=== PATIENT | female | born 1970 | race Caucasian/White ===

== ENCOUNTER 2020-08-06 12:39 | Inpatient (IN) | payer OTHER ==
[~2020-08-06] VITALS: Ht 162.6 cm; Wt 108.4 kg
[2020-08-08] MEDS ORDERED: DULCOLAX10 MG RECTAL (09:37)
[2020-08-08] MEDS ORDERED: SENNA PLUS TAB1 EACH PO (09:38)
[2020-08-08] MEDS ORDERED: ASPIRIN325 PO (09:42)
[2020-08-08] MEDS ORDERED: DESYREL150 MG PO (09:43)
[2020-08-08] MEDS ORDERED: HYDROCODON-ACE1 EA12 PO (09:46)
[2020-08-08] MEDS ORDERED: HYDROCODONE-AP1 EA11 PO (09:49)
[2020-08-08] MEDS ORDERED: ZOFRAN ODT4 MG DISSOLVE (09:50)
[2020-08-08] MEDS ORDERED: MIRALAX17 G1 PO (09:51)
[2020-08-08] MEDS ORDERED: HEPARIN SO5000 UNIT/ SUBQ (09:55)
[2020-08-08] MEDS ORDERED: VENLAFAXINE HCL50 MG PO (09:56)
[2020-08-08] MEDS ORDERED: NEURONTIN300 MG PO (10:06)
[2020-08-08] MEDS ORDERED: LOPRESSOR50 MG PO (10:07)
[2020-08-08] MEDS ORDERED: OLANZAPINE20 MG PO (10:08)
[2020-08-08] MEDS ORDERED: CYMBALTA60 MG PO (10:09)
[2020-08-08] MEDS ORDERED: PRAZOSIN HCL2 MG PO (10:10)
[2020-08-08] MEDS ORDERED: LEVETIRACETAM1000 MG PO (10:12)
--- NOTE | 2020-08-08 14:29 | NUR ---
PATIENT ADMITTED TO ROOM 511 AT 1330. PATIENT IS ALERT AND ORIENTED X4. PATIENT MARY'S, DISTRIBUTOR ADVERTISING MATERIAL ARE EQUAL. LUNGS ARE CLEAR. ABD IS SOFT WITH BSX4. FALL AND SAFETY PROTOCOLS IN PLACE. C/O THROBBING PAIN IN HIS LEFT ANKLE. MEDICATED WITH PRN PAIN MED. P.T. EVAL TO BE DONE LATER TODAY. S.T. AND O.T. TO BE DONE ON MONDAY. CALL LIGHT AND CONTROL IN REACH. PATIENT IS STAND, PIVOT, SIT ON BSC TO VOID AND HAVE BM'S. LEFT LEG AND ANKLE HAS CAST/SPLINT INTACT. PATIENT HAS GOOD CAP REFILL TO HER TOES ON THE LEFT. LUNCH TRAY SERVED. WILL CONTINUE TO MONITER.
[2020-08-08 14:53] VITALS: BP 120/64
[2020-08-08 20:00] VITALS: BP 90/53
--- NOTE | 2020-08-09 00:04 | NUR ---
ASSESSMENT: PT REMAIN ALERT AND ORIENT TIMES FOUR. LEFT LEG NOTED WITH SOFT CASTED SPLINT. PT UP TO BSC WITH WALKER AND NWB ON THE LEFT LOWER EXTREMITY. VSS, AFEBRILE. PT STATE THAT PRN PAIN MED PROVIDES ADEQUATE RELIEF OF PAIN. NO FURTHER COMPLAINTS. CONTINUAL PROGRESS TOWARDS DC GOALS. WILL CONTINUE TO MONITOR.
[2020-08-09 05:27] LABS: HEMATOCRIT 33.6 % (37.0-47.0); HEMOGLOBIN 11.1 gm/dL (12.0-15.0); MCH 29.9 pg (26.0-34.0); MCHC 32.9 g/dL (28.0-37.0); MCV 90.8 fL (80.0-100.0); RBC 3.7 mil/uL (4.20-5.00); RDW 13.9 % (10.5-14.5); WBC 7.6 thou/uL (4.0-11.0)
[2020-08-09 06:22] LABS: CALCIUM 9.6 mg/dL (8.5-10.1); CREATININE 0.7 mg/dL (0.6-1.0); POTASSIUM 3.8 mmol/L (3.5-5.1)
[2020-08-09 08:00] VITALS: BP 109/60
--- NOTE | 2020-08-09 11:21 | NUR ---
ASSUMED CARE AT 0700. ALERT AND ORIENTATED X 4. SLEPT FAIRLY WELL. REPORTED PAIN IN HER L ANKLE ESPECIALLY IN THE TOES AND ALSO REPORTED NUMBNESS. TREATED WITH HYDROCODONE 7.5MG 2 TABS PRN. NOTED PT IS MORE SEDATED AND TIRED. DR KERR WANTS DOSE TO CHANGE TO 10MG INSTEAD OF 15MG, PT IS AGREEABLE TO SWITCH TO 10MG. PT REPORTED HAD A BM YESTERDAY PRIOR TO TRANSFER FROM [place]. L LE IN CAST POST ORIF, ABLE TO MOVE ALL TOES, SKIN IS WARM AND PINK, PEDAL PULSES PRESENT. NWB MAINTAINED.
[2020-08-09 19:26] VITALS: BP 115/68
--- NOTE | 2020-08-10 01:47 | NUR ---
ASSUMED CARE AT 1900 OF 08/09. PATIENT IS A&OX4. REPORTED PAIN IN LEFT ANKLE, PAIN MANAGED W/ PRN HYDROCODONE/APAP. PATIENT IS CURRENTLY RECEIVING 7.5MG OF HYDROCODONE. PATIENT REPORTED PAIN RELEIF. SPLINT REMAINS ON LLE. MOVEMENT AND COLOR PRESENT IN LEFT TOES. CONTINUES TO BE NWB ON LLE. BS PRESENT AND ACTIVE. NO CONCERNS AT THIS TIME, WILL CONT. TO MONITOR.
[2020-08-10 06:08] LABS: FOLIC ACID 9.1 ng/mL (8.6-58.9)
[2020-08-10 07:15] VITALS: BP 134/81
--- NOTE | 2020-08-10 08:43 | NUR ---
PT UP IN CHAIR THIS AM. PT STATED SHE HAS SOME PAIN TO LEFT ANKLE OF 5 ON 1-10 SCALE. PT LAST BM 08/08/20. PT TALKING WITH FREYA MANDUJANO THIS AM ABOUT HER LEVEL OF VIT B12 AND FOLATE. PT SEEMS FLAT IN AFFECT, ANSWERES QUESTIONS APPROPRIALTY. PT ON ROOM AIR. PT IS NWB TO LEFT ANKLE. PT STATED SHE HAS STEPS ONCE IN THE HOUSE TO GET UPSTAIRS. PT HAS SOFT SPINT TO LEFT ANKLE AND USES WALKER TO AMBULATE OR TRANSFER.
--- NOTE | 2020-08-10 10:04 | NUR ---
ADM HYDROCODONE 7.5MG PO FOR PAIN TO LEFT ANKLE OF 5 ON 1-10 SCALE.
--- NOTE | 2020-08-10 14:15 | NUR ---
ADM HYDROCODONE 7.5MG PO FOR PAIN TO LEFT ANKLE OF 6 ON 1-10 SCALE. PT LYING IN BED AFTER THERAPY. ELEVATED LEFT LEG ON PILLOW.
--- NOTE | 2020-08-10 19:20 | NUR ---
ASSISTED PT TO BATHROOM VIA WALKER. PT WANTED PAIN MEDICATION FOR PAIN OF 7 ON 1-10 SCALE ADM HYDROCODONE 7.5MG PO FOR PAIN.
[2020-08-10 19:37] VITALS: BP 114/77
--- NOTE | 2020-08-11 02:19 | NUR ---
ASSUMED CARE AT 1900 OF 08/10. A&OX4, W/ NOTED FORGETFULLNESS. REPORTS LLE PAIN, WITH CONCNETRATION IN ANKLE. LLE REMAINS IN SPLINT AN NWB. PAIN MANAGED WITH PRN HYDROCODONE W/ REPORTS OF PAIN RELEIF. MINIMAL ASSIST OF 1 WITH GB AND WALKER FOR TRANSFERS, PATIENT IS ABLE TO PIVOT FROM BED TO COMMODE WELL. PATIENT REQUIRES REMINDER TO REMAIN NWB ON LLE, FALL PRECAUTION EDUCATION PROVIDED. CALL LIGHT W/IN REACH, BED ALARM ON, SCD IN PLACE ON RLE. NO COCNERNS AT THIS TIME, WILL CONTINUE TO MONITOR.
[2020-08-11 03:05] LABS: GLYCOHEMOGLOBIN (HGB A1C) 5.6 % (4.8-5.6)
[2020-08-11 08:00] VITALS: BP 124/70
--- NOTE | 2020-08-11 12:59 | NUR ---
team meeting, left ankle fx, eval in process. from [facility]. splint left ankle, nwb. transfer mod to min assist. try fww 15 ft to min assist, knee scooter 100ft contact assist. starting shower bench to do stairs. has flight to get up to her apartment. wc, walker, shower bench vs rent knee scooter, and will need bath bench . mod cog, assist with pills and bills, son will assist. lives at home with son, daughter in law- , and 9months baby. re team, unable to care for 9month old baby when she returns home.
--- NOTE | 2020-08-11 13:14 | NUR ---
Nutrition: pt admitted with medical complexity, general debility, S/P left ankle fx/ORIF on 08/04. Received consult stating "diet choices". BMI 41, extreme class 3 obesity. Pt reports gaining weight around menopause in 2013. Currently on heart healthy diet eating well 90-100% of meals. Aware of option to order meals if desired. On B12 and folic acid supplementation. Vitamin D pending. Provided pt with materials related to heart healthy diet and weight loss, offering basic tips which pt was receptive to. Low nutrition risk.
--- NOTE | 2020-08-11 17:31 | NUR ---
ASSUMED PATIENT CARE AT 0700. A/O X3. ANXIOUS TEARFUL WANTS GO HOME. PATIENT GOT CALM DOWN AFTER SYSTEMS PLANNER TALK TO HER. PATIENT ABLE TO USE WALKER GO TO BATHROOM. DENIES PAIN. SLOWLY TOWARDS POC GOALS.
[2020-08-11 19:03] VITALS: BP 153/110
[2020-08-11 20:47] VITALS: BP 133/85
--- NOTE | 2020-08-12 04:47 | NUR ---
assumed care approx 1900 evening 08/11. pt lying in bed with head of bed elevated. pt with flat affect, cooperative. pt stated she did not sleep well last night so orders recd for Trazodone hs.pt appears to be sleeping soundly. bed alarm on and call light in reach. will continue to monitor.
[2020-08-12 08:00] VITALS: BP 117/84
--- NOTE | 2020-08-12 09:12 | NUR ---
PT WORKING WITH THERAPY AT THIS TIME. PT COMPLAINED OF ALMOST NOT MAKING IT TO THE BATHROOM WITH BM. HELD BOWEL MEDICATION. PT HAS LEFT ANKLE IN SPLINT WITH SOFT WRAP. PT UP WITH WALKER OR KNEE SCOOTER WHEN WORKING WITH THERAPY. PT ABLE TO HOP WITH RT FOOT SHORT DISTANCE TO BED TO BATHROOM. SON CALLED AND SAID HER PERSONAL PHONE IS WORKING AGAIN AND WILL PROB BRING IT IN TODAY OR MONDAY. DIDN'T COMPLAIN OF PAIN AT THIS TIME, JUST ABLE TO FEEL THE ANKLE IS SORE.
--- NOTE | 2020-08-12 15:35 | NUR ---
cm spoke with robert youngblood via phone call, he agrees with dcp and cont therapy. will cont following as needed for dc needs.
--- NOTE | 2020-08-12 18:42 | NUR ---
PT HAS BEEN UP TO CHAIR MOST OF THE DAY. PT SITTING ON SIDE OF BED NOW AT THIS TIME. PT HAS NOT HAD ANY PAIN MEDICATION THIS SHIFT, PT HAS HAD X3 LOOSE STOOLS TODAY. PT HOPS WITH WALKER TO BATHROOM. PT WANTS TO BE MORE INDEPENDANT WITH HER AMBULATION.
--- NOTE | 2020-08-12 20:02 | NUR ---
MEDICATION WAS GIVEN TO CHAINER TO TAKE DOWNSTAIRS. BAGS WERE NOT OPENED.
[2020-08-12 21:04] VITALS: BP 146/84
--- NOTE | 2020-08-13 04:28 | NUR ---
08-12-20 CARE TRANSFERRED 1899. LATER PT SITTING IN BED AAOX4, VSS, RR EVEN AND NONLABORED ON RA, PT LUNGS CLEAR, HT RR, ABD ACTIVE AND SOFT. PT LEFT ANKLE SOFT CAST DRESSING D/C/I. PT REPORTS PAIN AND SCALES AT 7 ON 0-10 SCALE, PAIN HAS BEEN MANAGED WITH MEDICATION. LATER SCD APPLIED TO RT LOWER CALF. ZERO S/S OF ACUTE DISTRESS NOTED, PT WILL CONTINUE TO BE MONITOR PER 5NR PROTOCOL.
[2020-08-13 07:53] VITALS: BP 108/64
--- NOTE | 2020-08-13 11:39 | NUR ---
Alert and orientated X4. Affect slightly flat. When asked about her depression she states she feels much better than yesterday when she was crying. Calm, cooperative and compliant. Breath sounds clear. Reg HR auscultated. Color pink with brisk capillary refill and palpable peripheral pulses. No edema noted. Independent with voiding. Active bowel sounds over soft, rounded abdomen. Reports BM this AM. L ankle in soft cast, clean, dry and intact. 3 sec capillary refill in toes with dorsalis pedis pulse felt through drg. Ambulates with walker.
[2020-08-13 19:36] VITALS: BP 114/70
--- NOTE | 2020-08-14 03:50 | NUR ---
Assumed care on 08/13/20 @ 19:15, seated up in chair. A&Ox4 VSS Breath sounds auscultated bilat, respirations even and nonlabored on room air. HRRR, ABD N BS x 4Q. R foot Pedal pulses present. Toes bilat are pink and warm with cap refill <3 sec. Soft cast C/D/I. Uses walker or scooter for non weight bearing to L lower extremity. In bed with eyes closed, respirations even and unlabored on room air. Will continue to monitor as per unit policy.
[2020-08-14 08:00] VITALS: BP 110/55
--- NOTE | 2020-08-14 11:34 | NUR ---
PT ALERT AND ORIENTED TIMES FOUR. VSS. SCHEDULED PAIN MEDICATIONS CONTROLLING PAIN WELL. PT TOLERATES MEDS AND MEALS. PT WORKS WELL WITH PT/OT. PT PROGRESSING TOWRADS POC GOALS.
--- NOTE | 2020-08-14 14:26 | NUR ---
Checking for ryan to rent knee scooters, range from $25.00 and up per week to rent,
[2020-08-14 19:40] VITALS: BP 111/68
--- NOTE | 2020-08-15 02:35 | NUR ---
assumed care approx 1900 evening 08/14. pt alert and oriented x4, appropriate and cooperative. pt had visit from family in evening and in good mood happy and enjoying visit with family. pt took hs meds with water tolerating well. pt up to bathroom to void before hs. pt appears to be sleeping soundly. bed alarm on and call light in reach. will continue to monitor.
[2020-08-15 07:15] VITALS: BP 123/76
--- NOTE | 2020-08-15 11:43 | NUR ---
ASSUMED CARE AT 0700. PATIENT IS ALERT AND ORIENTED X4. PATIENT MARY'S, ELECTRIC CAR OPERATOR ARE EQUAL. LUNGS ARE CLEAR. ABD IS SOFT WITH BSX4. PATIENT IS NWB ON HER LEFT ANKLE. PATENT HAS LEFT L.E. SOFT CAST/SPLINT IS DRY AND INTACT. DR. LAWS WILL CHANGE THE DRESSING IN THE OFFICE ON MON. NEX WEEK. C.M. TO SET UP TRANSPORTATION TO AND FROM DR. ZAZUETA'S OFFICE. PATIENT HAS GOOD CAP REFILL TO HER TOES ON THE LEFT. PATIENT HOPS WITH WALKER TO BATHROOM. PATIENT HAS SCOOTER FOR MOBILITY WITH P.T. PATIENT IS VOIDING JONNY COLORED URINE. FALL AND SAFETY PROTOCOLS IN PLACE. MEDICATED WITH SCED PRN PAIN MED. PATIENT CONTINUES TO PROGRESS TOWARDS D/C GOALS. WILL CONTINUE TO MONITER.
[2020-08-15 20:25] VITALS: BP 112/61
--- NOTE | 2020-08-15 21:25 | NUR ---
LEFT LEG SPLINTED
--- NOTE | 2020-08-16 03:11 | NUR ---
UP TO TOILET WITH ASSIST USING SCOOTER. TYLENOL GIVEN FOR PAIN, PATIENT AVOIDING NARCOTICS AND IS HAPPY THAT TYLENOL IS SUFFICIENT FOR PAIN CONTROL LATELY. SENNEKOT GIVEN AT HS SINCE NO BM AFTER AM MIRALAX. PLEASANT AND AWARE THAT SPLINT WILL BE CHANGED AT DOCTOR OFFICE Monday
[2020-08-16 07:15] VITALS: BP 126/76
--- NOTE | 2020-08-16 09:45 | NUR ---
ASSUMED CARE AT 0700. PATIENT IS ALERT AND ORIENTED X4. PATIENT MARY'S, BANKING PIN ADJUSTER ARE EQUAL. LUNGS ARE CLEAR. ABD IS SOFT WITH BSX4. PATIENT IS UP WITH ASSIST OF 1 STAFF AND GAIT BELT AND SCOOTER. PATIENT IS UP TO BATHROOM TO VOID JONNY COLORED URINE. FALL AND SAFETY PROTOCOLS IN PLACE. DENIES PAIN AT THIS TIME. CONTINUES TO PROGRESS SLOWLY TOWARDS D/C GOALS. WILL CONTINUE TO MONIER.
[2020-08-16 19:39] VITALS: BP 112/66
--- NOTE | 2020-08-17 02:55 | NUR ---
ASSUMED CARE AT 1900 OF 08/16. A&OX4. REPORTED MILD PAIN IN L ANKLE, PAIN MANAGED WITH PRN TYLENOL. STAND BY ASSIST USING GAITBELT AND KNEE SCOOTER TO TRANSFER AND AMBULATE. SPLINT ON LLE CDI. NWB ON LEFT ANKLE. ABLE TO SELFT TURN IN BED, CURRENTLY SLEEPING IN BED. NO CONCERNS AT THIS TIME, WILL CONTINUE TO MONITOR.
[2020-08-17 08:00] VITALS: BP 154/87
--- NOTE | 2020-08-17 11:43 | NUR ---
ASSUMED CARE OF PT AT 0715. PT IS A&OX4. IS ON ROOM AIR. DENIES PAIN IN LEFT ANKLE. SPLINT C/D/I. NON WT BEARING. USES SCOOTER W STANDBY ASSIST, JAKY. FALL PRECAUTIONS & HOURLY ROUNDING CONTINUED THIS SHIFT. IS ABLE TO WIGGLE TOES. COLOR APPROPRIATE FOR ETHNICITY. CAP REFILL < 3 SEC. DENIES N/T. PT IS STABLE. LABS & VITALS REVIEWED. WAS LAST SEEN IN GYM WITH PHYSICAL THERPAIST AT 1100 ROUNDS. IS STABLE. WILL CONTINUE TO MONITOR. CM LOOKING INTO NEED FOR TRANSPORT FOR [facility]'S APPOINTMENT AT 3 PM.
--- NOTE | 2020-08-17 15:02 | NUR ---
dennis spoke with son rylie, he has mandatory work on 08/19/20 and will get in trouble at work if he misses this. he can pick her up for dc home on thur 08/20/20. She will need transportation to and from acute rehab to dr dang on 08/19/20 for appointment at 1500.
[2020-08-17 19:18] VITALS: BP 113/75
--- NOTE | 2020-08-18 04:05 | NUR ---
ASSUMED CARE AT 1900 OF 08/17. A&OX4, REPORTED MILD PAIN IN L ANKLE. LLE REMAINS IN SOFT CAST SPLINT AND NWB. PAIN MANAGED WITH PRN TYLENOL. PATIENT USES KNEE SCOOTER TO TRANSFER AND AMBULATE TO TOILET. STAND BY ASSIST WITH GB WHILE PIVOTING TO TOILET. BOWEL SOUNDS ARE PRESENT AND ACTIVEX4, ABD IS SOFT, REPORTS PASSING FLATUS. MEDICATIONS ADMNISTERED ORDERED, NO CONCERNS AT THIS TIME. WILL CONTINUE TO MONITOR.
[2020-08-18 06:31] LABS: ABSOLUTE NEUTROPHILS 2.5 thou/uL (1.4-8.2); BASOPHILS 1.1 % (0.0-2.0); EOSINOPHILS 5.6 % (0.0-3.0); HEMATOCRIT 36.1 % (37.0-47.0); HEMOGLOBIN 11.8 gm/dL (12.0-15.0); LYMPHOCYTES 45.4 % (24.0-44.0); MCH 29.8 pg (26.0-34.0); MCHC 32.7 g/dL (28.0-37.0); MCV 91.4 fL (80.0-100.0); MONOCYTES 6.2 % (1.0-8.0); PLATELET COUNT 286 thou/uL (150-400); POLYS 41.7 % (36.0-66.0); RBC 3.95 mil/uL (4.20-5.00); RDW 14.6 % (10.5-14.5); WBC 6.1 thou/uL (4.0-11.0)
[2020-08-18 06:46] LABS: CALCIUM 9.2 mg/dL (8.5-10.1); CREATININE 0.7 mg/dL (0.6-1.0); MAGNESIUM 2.1 mg/dL (1.8-2.4); POTASSIUM 3.8 mmol/L (3.5-5.1)
--- NOTE | 2020-08-18 12:37 | NUR ---
Nutrition: pt admitted with medical complexity with general debility S/P left ankle/ORIF on 08/04. No weight since 08/09. Pt eating 50-100% of meals on heart healthy diet and voices no concerns. Likes the standard menu items. 08/16 BM. On folic acid, B12 and vitamin D for deficiency. Low nutrition risk.
[2020-08-18] MEDS ORDERED: VITAMIN B-12500 MCG PO (12:39)
[2020-08-18] MEDS ORDERED: FOLIC ACID1 MG PO (12:39)
[2020-08-18] MEDS ORDERED: TYLENOL EXTRA500 MG PO (12:39)
--- NOTE | 2020-08-18 13:42 | NUR ---
Team meeting, recommendation: shower chair set up for stair assistance. son to work with therapy day of dc. mild cog deficits. needs initial assist with medication and finances. ortho appointment 08/20 and then dc on 08/21/20 h[facility] ( pt, ot and nursing). MOD I in room with knee scooter. son getting knee scooter, and bath chair. express transportation with take and bring her back from ortho appointment.
--- NOTE | 2020-08-18 14:41 | NUR ---
ASSUMED CARE OF PT 0700. PT APPEARS ASLEEP AT 0715. PT UP TO KNEE SCOOTER WITH SBA. PT STATES PAIN IS CONTROLLED WITH PRN TYLENOL. PT. CALLS OUT FOR MEDS APPROPRIATELY. A&0X4. TOLERATING DIET. WILLINGLY WORKS WITH THERAPIES. PT IS MODIFIED INDEPENDECE. PT. REMAINS NWB TO LLE. WILL CONTINUE TO MONITOR.
[2020-08-18 19:38] VITALS: BP 119/77
--- NOTE | 2020-08-19 02:13 | NUR ---
ASSUMED CARE AT 1900 OF 08/18. PATIENT IS A&OX4, REPORTS MILD PAIN IN LEFT ANKLE. PAIN IS MANAGED WITH PRN TYLENOL. PATIENT EXHIBITING ANXIETY ABOUT ORTHOPEDIC APPOINTMENT, TIME AND SPACE PROVIDE FOR PATIENT TO VENT. PATIENT IS CURRENTLY MODIFIED INDEPENDENT, AND HAS BEEN CALLING APPROPRIATELY FOR HER MEDICATIONS. NO CONCERNS AT THIS TIME, WILL CONTINUE TO MONITOR.
[2020-08-19 07:15] VITALS: BP 142/77
--- NOTE | 2020-08-19 12:10 | NUR ---
ASSUMING CARE OF THE PT AT 0715. PT IS A&OX4. IS ON ROOM AIR. IS STABLE. REPORTS PAIN 2/10 IN LEFT ANKLE THAT IS BEING MANAGED WITH ORAL PAIN MEDS & OTHER THERAPUETIC TECHNIQUES. PT IS NON WT BEARING. SPLINT IN PLACE. IS ABLE TO WIGGLE TOES. DENIES N/T. COLOR APPROPRIATE FOR ETHNICITY. IS UP MOD I WITH SCOOTER IN ROOM. HOURLY ROUNDING CONTINUED THIS SHIFT. TANSPORTATION ARRANGED FOR TODAY'S APPT. WILL CONTINUE TO MONITOR.
[2020-08-19 13:08] VITALS: BP 142/77
--- NOTE | 2020-08-19 16:05 | PLAN ---
[facility] [place] [address] REHAB UNIT PLAN OF CARE Name: AUGUST RAE Room #: 501-A ADM IN M.R.#: [id number] Admission: 08/08/20 Attend Phys: Kehinde Braswell MD Discharge: Date of : 68 Report #: [id number] THIS REPORT FOR: cc: FAM - Family physician unknown FAM - Family physician unknown Kehinde Braswell MD ~ DOC #: [id number] Kehinde Braswell MD DATE OF SERVICE: 08/11/2020 PROGRESS NOTE AND OVERALL PLAN OF CARE SUBJECTIVE: The patient is seen on the acute inpatient rehabilitation [place]. She is pleasant, in no distress. Temperature 97.6, pulse 72, respirations 17, blood pressure is 114/77. She has the splint in place. Left lower extremity, she is able to wiggle her toes without difficulty. Transfers are min assist with gait 5 feet front-wheeled walker. She started to try to work on stairs. Upper body dressing is setup with lower body dressing min assist. Speech therapy is involved with moderate cognitive deficits and severe memory deficits. ASSESSMENT: 1. Multifactorial encephalopathy/metabolic with potential hypoxic component. 2. Left bimalleolar ankle fracture with dislocation of left tibiotalar joint, status post open reduction and internal fixation on 08/04/2020, nonweightbearing left lower extremity. 3. Acute hypoxic respiratory failure, resolving. 4. Hypertension. 5. Obesity. 6. Anxiety, depression. PLAN: The overall plan of care is based on the pre-admit screen and information garnered from therapy assessments. 1. Estimated length of stay is probably 10 days to 2 weeks, potentially longer as warranted. 2. Medical prognosis is reasonably good. 3. Anticipated interventions includes the interdisciplinary acute inpatient rehabilitation program. 4. Anticipated functional outcomes would be for the patient to improve as far as mobility, ADLs, nonweightbearing on the left lower extremity as well as cognition. She does have significant cognitive deficits that are noted. 5. Discharge destination would be back to the home setting where she lives with her son and [id number]. She notes that they were in alternating shifts. There are twelve steps in and she knows there is no other way to get in. 6. Expected therapy by discipline includes PT, OT and speech 1 hour per day each 5 days a week throughout the duration of the acute inpatient rehabilitation [address] [address] REHAB UNIT PLAN OF CARE Name: AUGUST RAE Room #: 501-A [facility] IN [facility].#: [id number] Admission: 08/08/20 Attend Phys: Kehinde Braswell MD Discharge: Date of : 68 Report #: [id number] stay. The patient's prognosis for significant practical improvement within a reasonable period of time appears good. Given the patient's complex medical condition and risk of further medical complication, rehabilitation services could not be safely provided at a lower level of care such as a prison facility. Kehinde Braswell MD DGS/ALL <ELECTRONICALLY SIGNED> By: Kehinde Braswell MD 08/19/20 1605 [id number] [id number] Kehinde Braswell MD /nt
--- NOTE | 2020-08-19 17:57 | NUR ---
PT RETURNED FROM ORTHO APPOINTMENT WITH SANJUANA RAMON. SHE WAS ABLE TO RECALL THAT SHE IS TO WEAR THIS AT ALL TIMES, AND THAT SHE IS TO REMAIN NON-WEIGHT BEARING FOR NOW. PT C/O PAIN AND WAS MEDICATED FOR 5/10 PAIN WITH HYDROCODONE. SHE IS MOD-I IN THE ROOM TODAY AND WILL DC HOME TOMORROW AFTER FAMILY TRAINING IS COMPLETED WITH HER SON.
[2020-08-19 19:10] VITALS: BP 110/68
--- NOTE | 2020-08-20 00:56 | NUR ---
ASKING FOR EVENING MEDS AT 2100. MEDS REVIEWED AND THEY ARE THE SAME MEDS SHE IS USED TO TAKING AT NIGHT WHEN SHE IS HOME. REVIEWED WITH PATIENT THAT NORCO ARE SCORED TO SPLIT (OR TO USE A PILL SPLITTER IF THEY ARE ROUND) IF SHE THINKS A SMALLER DOSE WOUND BE WORTH TRYING SHE IS TRYING NOT TO TAKE TOO MUCH. AT HS SHE WANTED ONLY TYLENOL IF IT'S NOT TOO SOON. UP IN ROOM INDEPENDENTLY WITH KNEE SCOOTER. TOLERATING MEDS WITH WATER, LOOKING FORWARD TO GOING HOME.
[2020-08-20] MEDS ORDERED: PRAZOSIN HCL2 MG PO (10:28)
[2020-08-20] MEDS ORDERED: FOLIC ACID1 MG PO (10:28)
[2020-08-20] MEDS ORDERED: ZYPREXA 5 MG TAB5 MG PO (10:28)
[2020-08-20] MEDS ORDERED: PT HOME MEDICATION MISCELL (10:28)
[2020-08-20] MEDS ORDERED: ASPIRIN325 PO (10:28)
[2020-08-20] MEDS ORDERED: DESYREL150 MG PO (10:28)
[2020-08-20] MEDS ORDERED: VITAMIN B-12500 MCG PO (10:28)
--- NOTE | 2020-08-20 14:44 | NUR ---
PT.DISCHARGED HOME WITH SON WITH HH.
--- NOTE | 2020-08-23 15:26 | HC ---
[facility] [place] [address] [place] [address] CONSULTATION Name: AUGUST RAE Room #: 501-A [facility] IN M.R.#: [id number] Admission: 08/08/20 Attend Phys: Kehinde Braswell MD Discharge: 08/20/20 Date of : 68 Report #: [id number] THIS REPORT FOR: cc: FAM - Family physician unknown FAM - Family physician unknown Jitendra Lua PhD ~ DOC #: [id number] Jitendra Lua, PhD DATE OF SERVICE: 08/16/2020 NEUROBEHAVIORAL STATUS EXAM ATTENDING PHYSICIAN: Kehinde Braswell M.D. [facility] ATTENDANT: Jitendra Lua, PhD. CLINICAL PRESENTATION: The patient is a 50-year-old female admitted to the rehabilitation unit for comprehensive inpatient rehabilitation program. She was initially admitted to the [facility] after a fall in which she sustained a left ankle fracture. She was diagnosed with a left bimalleolar ankle fracture with dislocation of the left tibiotalar joint. The patient underwent an ORIF on 08/04/2020 and is nonweightbearing to left lower extremity. The patient also had acute hypoxic respiratory failure and was noted to have confusion postoperatively. Her assessment on admission to the rehabilitation unit included left bimalleolar ankle fracture status post ORIF on 08/04/2020, nonweightbearing to the left lower extremity, acute hypoxic respiratory failure that is resolving, acute encephalopathy, hypertension, anxiety/depression, and obesity. A complete description of her medical condition and history can be found in her medical record. Neuropsychological consultation was requested to provide assistance in the assessment of cognitive and emotional status and to provide recommendations and services. Prior to this most recent admission, she was living with her son and [id number]. She is a high school graduate. She reported having worked for the [employer] prior to her halfway. Driving was discontinued many years ago. She has 4 children and is . The patient does not report a history of alcohol or drug abuse. She reports being independent with basic and instrumental activities of daily living prior to her fall. TECHNIQUES UTILIZED: Clinical interview, review of medical records, staff consultation and behavioral observation, mini mental status exam 2 standard version and clock drawing. [facility] [address] [place] [address] CONSULTATION Name: AUGUST RAE Room #: 501-A [facility] IN [facility].#: [id number] Admission: 08/08/20 Attend Phys: Kehinde Braswell MD Discharge: 08/20/20 Date of : 68 Report #: [id number] EXAMINATION FINDINGS: The patient was alert and cooperative with the assessment. She accurately indicated having had a fall and broken her foot. However, she does have a period of amnesia surrounding that event and does not recall exactly what happened. She reports anxiety and depression prior to this event and difficulty with word finding but no problems with sleep or appetite. Performance on the MMSE 2 brief version is within normal limits with a raw score of 14/16. She was 3/3 with initial registration, 5/5 for orientation and time, 4/[address] and 2/3 for immediate recall of 3 items after a brief time delay and distraction. Performance on the MMSE 2 standard version was within normal limits with a raw score of 28/30. She was able to copy a simple geometric design. Concentration, naming, comprehension, reading and writing were within normal limits. Clock drawing was within normal limits for spatial organization and hand placement. The patient is likely to have had a period of delirium, which has resolved. Currently, she has longstanding anxiety/depression. Possible neurocognitive disorder is suggested. DIAGNOSTIC IMPRESSION: Mild neurocognitive disorder, unspecified, without behavior disorder. Unspecified depressive disorder with anxiety. RECOMMENDATIONS: Continued use of compensatory strategies to assist in overall adjustment. Consider antidepressant medication along with counseling to assist in adjustment following her discharge. Speech therapy will be of benefit to assist as needed with the development of compensatory strategies. Per family, she will need to help with the management of medication and finances to ensure safety upon discharge. Thank you very much for allowing me to provide the consultation on this patient. Jitendra uLa, PhD [facility]/[address] [address] CONSULTATION Name: AUGUST RAE Room #: 501-A [facility] IN M.R.#: [id number] Admission: 08/08/20 Attend Phys: Kehinde Braswell MD Discharge: 08/20/20 Date of : 68 Report #: [id number] <ELECTRONICALLY SIGNED> By: Jitendra Lua, PhD 08/23/20 1526 [id number] Jitendra Lua, PhD /nt
== END 2020-08-20 13:42 | disposition home health service (06) | DRG 562 ==
PROVIDERS: Nurse Practitioner; Nurse Practitioner Family; ADMIT Physical Medicine & Rehabilitation; ATTEND Physical Medicine & Rehabilitation
DX: S82.842A Displaced bimalleolar fracture of left lower leg, initial encounter for closed fracture (principal); J96.01 Acute respiratory failure with hypoxia; G93.41 Metabolic encephalopathy; Z68.41 Body mass index [BMI] 40.0-44.9, adult; I10 Essential (primary) hypertension; F41.9 Anxiety disorder, unspecified; F32.9 Major depressive disorder, single episode, unspecified; E53.8 Deficiency of other specified B group vitamins; F43.10 Post-traumatic stress disorder, unspecified; G31.84 Mild cognitive impairment of uncertain or unknown etiology; G40.909 Epilepsy, unspecified, not intractable, without status epilepticus; E66.01 Morbid (severe) obesity due to excess calories; W18.39XA Other fall on same level, initial encounter; Y93.89 Activity, other specified; Y92.89 Other specified places as the place of occurrence of the external cause; Y99.8 Other external cause status; Z79.82 Long term (current) use of aspirin; Z79.899 Other long term (current) drug therapy
CPT/HCPCS: 10112